=== PATIENT | female | born 1965 | race Caucasian/White ===

== ENCOUNTER → 2020-11-11 09:51 | Outpatient (CLI) | payer BC, SELFPAY ==
--- NOTE | ~2020-11-11 | XR_ITS ---
XR_RIBSBI_CR DATE: 11/11/2020 10:22 INDICATION: Left lateral rib pain for 3 weeks after vacuuming TECHNIQUE: Multiple views of left ribs. Multiple views of right ribs. COMPARISON: None FINDINGS: No left or right rib fracture or bone destruction is detected. The lungs are clear. No pleu ral effusion or pulmonary vascular congestion or pneumothorax. Normal heart size. No hilar or mediast inal enlargement. Mild levoscoliosis of the thoracic spine. IMPRESSION: Negative bilateral ribs Reviewed, dictated and finalized at [facility]. Reviewed, dictated and finalized at [facility]. IMPRESSION: Negative bilateral ribs
== END ==
PROVIDERS: PCP Internal Medicine; Visit Provider Internal Medicine
DX: R07.81 Pleurodynia (principal)
CPT/HCPCS: 71110